=== PATIENT | male | born 1985 | race African-American/Black ===

== ENCOUNTER 2016-10-14 21:12 | Emergency (ER) | payer MEDICAID ==
[~2016-10-14] VITALS: Ht 170.2 cm; Wt 105.0 kg
[~2016-10-14 21:12] MED LIST: MEDR4PAK3 PO; ZITH250T PO
[2016-10-14 21:19] VITALS: BP 143/75; PULSE 86; RESP 16; TEMP 98.5; O2SAT 97
[2016-10-14 22:26] LABS: BLOOD, URINE NEG (NEG); GLUCOSE,URINE NEG (NEG); KETONE, URINE TRACE mg/dL (NEG); NITRITE,URINE NEG (NEG)
[2016-10-14 22:32] LABS: URINE COLOR YELLOW (YELLW/STRAW)
[2016-10-14 22:33] LABS: COMMENT (UR) CULT NOT INDICATED; CULTURE IF INDICATED CULT NOT INDICATED; RBC, URINE 0-2 /hpf (0-3); SQUAMOUS EPITHELIAL CELL URINE 0-5 /hpf (0-5); WBC, URINE 0-2 /hpf (0-5)
--- NOTE | 2016-10-14 22:37 | PD ---
HPI Chief Complaint: Complaint Time Seen by Provider: 22:17 Travel History International Travel<30 days: No Contact w/Intl Traveler<30days: No Traveled to known affect area: No History of Present Illness HPI Patient is a 31-year-old male presents emergency Department with superior left testicular pain for the past few days. Denies any dysuria denies any fever denies abdominal pain nausea or vomiting. Denies any trauma. Patient states he has had STD in the past but has not had any new partners or any discharge to suggest a recurrent STD. PFSH Past Medical History Medical History: Denies Significant Hx Diminished Hearing: No Tetanus Vaccination: > 5 Years Influenza Vaccination: No Past Surgical History Surgical History: No Previous Surgery Social History Alcohol Use: Yes (Occ.) Tobacco Use: No Substance Use: No Allergies-Medications (Allergen,Severity, Reaction): Coded Allergies: No Known Allergies (Verified , 10/14/16) Reported Meds & Prescriptions Reported Meds & Active Scripts Active Ciprofloxacin (Ciprofloxacin HCl) 500 Mg Tab 500 Mg PO BID 10 Days Review of Systems Except as stated in HPI: all other systems reviewed are Neg Physical Exam Narrative GENERAL: Well-nourished, well-developed patient. In no distress. SKIN: Focused skin assessment warm/dry. HEAD: Normocephalic. EYES: No scleral icterus. No injection or drainage. NECK: Supple, trachea midline. No JVD or lymphadenopathy. CARDIOVASCULAR: Regular rate and rhythm without murmurs, gallops, or rubs. RESPIRATORY: Breath sounds equal bilaterally. No accessory muscle use. GASTROINTESTINAL: Abdomen soft, non-tender, nondistended. GENITOURINARY: Grossly normal male genitalia, uncircumcised, minimal tenderness to the left epididymis, testes and tender and easily mobile., cremaster reflexes intact. No overlying skin changes. MUSCULOSKELETAL: No cyanosis, or edema. BACK: Nontender without obvious deformity. No CVA tenderness. Data Data Last Documented VS Vital Signs Date Time Temp Pulse Resp B/P Pulse Ox O2 Delivery O2 Flow Rate FiO2 10/14/16 23:20 84 18 135/84 99 10/14/16 21:19 98.5 Orders Us Testicles W Doppler (10/14/16 21:49) Urinalysis - C+S If Indicated (10/14/16 21:49) Gc And Chlamydia Pcr (10/14/16 21:49) Labs Laboratory Tests Test 10/14/16 22:05 Urine Color YELLOW Urine Turbidity CLEAR Urine pH 6.0 Urine Specific [place] 1.025 Urine Protein NEG mg/dL Urine Glucose (UA) NEG mg/dL Urine Ketones TRACE mg/dL Urine Occult Blood NEG Urine Nitrite NEG Urine Bilirubin NEG Urine Leukocyte Esterase NEG Urine RBC 0-2 /hpf Urine WBC 0-2 /hpf Urine Squamous Epithelial 0-5 /hpf Cells Urine Bacteria NONE /hpf Microscopic Urinalysis Comment CULT NOT INDICATED MDM Medical Decision Making Medical Screen Exam Complete: Yes Emergency Medical Condition: Yes Differential Diagnosis Epididymitis, torsion unlikely, orchitis, mass, STD. Narrative Course Patient roomed emergency department, ultrasound obtained and shows: Last 24 hours Impressions Scrotum Ultrasound 10/14/162148 Signed Impressions: Service Date/Time: October 22:32 - CONCLUSION: 1. No evidence of torsion 2. Epididymis enlarged on the left characteristic of epididymitis Jacques Gramajo MD Discuss results with the patient and discussed his STD risk, at this time the patient opts to wait for STD results prior to treatment. I think this is reasonable given his fairly low risk. Will be prescribed ciprofloxacin. Discussed need follow-up with primary care physician and if any concerns for STD should arise he can follow-up with the health department or return to the emergency department. He is stable for discharge. Diagnosis Primary Impression: Epididymitis Med/Other Pt SpecificInfo: Prescription(s) given Scripts Ciprofloxacin 500 Mg Lgm230 Mg PO BID 10 Days Ref 0 Prov:Cuauhtemoc Dai MD 10/14/16 Disposition: 01 DISCHARGE HOME Condition: Stable Cuauhtemoc Dai MD Oct 14, 2016 22:37
--- NOTE | 2016-10-14 23:07 | RADRPT ---
EXAM DATE/TIME: 10/14/2016 22:32 [facility] COMPARISON: No previous studies available for comparison. INDICATIONS : Left testicle pain. MEDICAL HISTORY : Left testicle pain. SURGICAL HISTORY : None. ENCOUNTER: Initial ACUITY: 4 - 6 days PAIN SCORE: 5/10 LOCATION: Bilateral testicles. MEASUREMENTS: RIGHT TESTICLE: 3.6 x 2.6 x 2.2cm LEFT TESTICLE: 2.6 x 2.7 x 4.0cm FINDINGS: Ultrasound examination of the testicles demonstrates normal size bilaterally. There is normal Doppler flow bilaterally without evidence of mass. There is slight enlargement of the epididymis on the left compared to the right without evidence of discrete mass. No hydrocele is evident. Small bilateral va ricoceles are present. CONCLUSION: 1. No evidence of torsion 2. Epididymis enlarged on the left characteristic of epididymitis Jacques Gramajo MD on October 14, 2016 at 23:05 Board Certified Radiologist. This report was verified electronically.
[2016-10-14] MEDS ORDERED: CIPR500T2 PO (23:12)
[2016-10-14 23:20] VITALS: BP 135/84
[2016-10-15 02:25] LABS: CHLAMYDIA PCR NOT DETECTED (NOT DETECT); NEISSERIA PCR NOT DETECTED (NOT DETECT)
== END 2016-10-14 23:21 | disposition home or self-care (01) ==
LOC: PHEFT 21:12
DX: N45.1 Epididymitis (principal)
CPT/HCPCS: 76870; 81001; 87491; 87591; 93975